=== PATIENT | female | born 1990 ===

== ENCOUNTER 2017-03-01 08:54 | Emergency (ER) | payer OTHER ==
[2017-03-01 09:06] VITALS: BP 112/64; PULSE 71; RESP 18; TEMP 96.7; O2SAT 98; BMI 23.3
--- NOTE | 2017-03-01 10:03 | ED PDOC ---
HPI: Abdomen Time Seen by Provider: 03/01/17 09:14 Chief Complaint (Nursing): Abdominal Pain Chief Complaint (Provider): Abdominal Pain History Per: Patient History/Exam Limitations: no limitations Onset/Duration Of Symptoms: Days (x2 weeks) Current Symptoms Are (Timing): Still Present Additional Complaint(s): 27 y/o female presents to the emergency department with a constant lower left abdominal pain but intermittent within the past 2 weeks without radiation of pain. Associated with burning sensation while urinating. Reports taking Tylenol with minimal relief of pain. Denies blood in urine, vaginal bleeding or discharge. Past Medical History Reviewed: Historical Data, Nursing Documentation, Vital Signs Vital Signs: Last Vital Signs Temp 96.7 F L 03/01/17 09:05 Pulse 71 03/01/17 09:05 Resp 18 03/01/17 09:05 BP 112/64 03/01/17 09:05 Pulse Ox 98 03/01/17 12:53 - Medical History PMH: No Chronic Diseases - Surgical History Surgical History: No Surg Hx - Family History Family History: States: Unknown Family Hx - Social History Current smoker - smoking cessation education provided: No Alcohol: None Drugs: Denies - Home Medications Home Medications: Ambulatory Orders Medication Instructions Recorded Naproxen [Naprosyn] 500 mg PO BID PRN #15 tablet 03/01/17 - Allergies Allergies/Adverse Reactions: Allergies Allergy/AdvReac Type Severity Reaction Status Date / Time No Known Allergies Allergy Verified 03/01/17 09:12 Review of Systems ROS Statement: Except As Marked, All Systems Reviewed And Found Negative Gastrointestinal: Positive for: Abdominal Pain Genitourinary Female: Positive for: Dysuria. Negative for: Hematuria, Vaginal Discharge, Vaginal Bleeding Physical Exam - Reviewed Nursing Documentation Reviewed: Yes Vital Signs Reviewed: Yes - Physical Exam Appears: Positive for: Non-toxic, No Acute Distress Head Exam: Positive for: ATRAUMATIC, NORMAL INSPECTION, NORMOCEPHALIC Skin: Positive for: Normal Color, Warm, Dry Gastrointestinal/Abdominal: Positive for: Soft, Tenderness (Left pelvic tenderness). Negative for: Normal Exam, Mass, Guarding, Rebound Neurologic/Psych: Positive for: Alert, Oriented (x3) - ECG O2 Sat by Pulse Oximetry: 98 (RA) Pulse Ox Interpretation: Normal Medical Decision Making Medical Decision Making: Time: 09:34 Initial Impression: Abdominal pain Initial Plan: --Urine DIP & Preg --Motrin 600 mg PO --Urinalysis --Pelvis/Transvag US --Reevaluation Accession No. : [id number] Patient Name / ID : QUE [place]ar / [id number] Exam Date : 02/19/2017 10:16:47 ( Approved ) Study Comment : Sex / Age : M / 65Y Creator : Fili Ybarra MD Dictator : Fili Ybarra MD Supervisor Electronics Processing : Beverage Manager : Fili Ybarra MD Approver2 : Report Date : 02/19/2017 12:18:52 My Comment : HISTORY: Chest wall pain COMPARISON: No prior. TECHNIQUE: Chest PA and lateral FINDINGS: Multiple sternotomy wires identified as well as intracardiac device. LUNGS: No acute infiltrate or pleural effusion is identified. There is crowding of the bronchovascular markings bilaterally which is likely a function of somewhat less than ideal inspiratory volume. PLEURA: No significant pleural effusion identified. No pneumothorax apparent. CARDIOVASCULAR: Normal. OSSEOUS STRUCTURES: No significant abnormalities. VISUALIZED UPPER ABDOMEN: Normal. OTHER FINDINGS: None. IMPRESSION: No acute infiltrate or pleural effusion bilaterally. No pneumothorax identified. Scribe Attestation: Documented by Edna Garay, acting as a scribe for Shayna Gary MD. Provider Scribe Attestation: All medical record entries made by the Scribe were at my direction and personally dictated by me. I have reviewed the chart and agree that the record accurately reflects my personal performance of the history, physical exam, medical decision making, and the department course for this patient. I have also personally directed, reviewed, and agree with the discharge instructions and disposition. Disposition - Clinical Impression Clinical Impression: Pelvic pain in female - Disposition Referrals: [facility] [Outside] Disposition Time: 12:30 Condition: STABLE Prescriptions: Naproxen [Naprosyn] 500 mg PO BID PRN #15 tablet PRN Reason: Pain, Moderate (4-7) Instructions: Pelvic Pain in Women (ED) Forms: [employer] (Somali) Print Language: SINGAPORE[place]
[2017-03-01 10:18] LABS: RBC URINE 4 /hpf (0-3); URINE BILIRUBIN NEGATIVE (NEGATIVE); URINE BLOOD SMALL (NEGATIVE); URINE COLOR YELLOW (YELLOW); URINE GLUCOSE (UA) NEG (Normal); URINE KETONE NEGATIVE (NEGATIVE); URINE LEUKOCYTE ESTERASE NEG Leu/uL (Negative); URINE PROTEIN NEGATIVE (NEGATIVE); URINE UROBILINOGEN 0.2-1.0 mg/dL (0.2-1.0); WBC URINE 1 /hpf (0-5)
--- NOTE | 2017-03-01 13:08 | US ---
HISTORY: L pelvic pain COMPARISON: None available. TECHNIQUE: Transabdominal FINDINGS: UTERUS: Measures 9.5 x 6.7 x 3.4 cm. Normal in size and appearance. No fibroid or other mass lesion seen. ENDOMETRIUM: Measures suboptimally evaluated due to the presence of an intrauterine device. No greater than 4 mm. Intrauterine device appropriately situated within the endometrial echo complex. . CERVIX: No cervical abnormality identified. RIGHT OVARY: Measures 2.0 x 3.7 x 4.5 cm. No solid mass. Normal flow. LEFT OVARY: Measures 2.7 x 2.9 x 3.8 cm. No solid mass. Normal flow. FREE FLUID: No significant free fluid noted. OTHER FINDINGS: None. IMPRESSION: Intrauterine device appropriately situated within the endometrial echo complex. The remainder of the examination is unremarkable.
== END 2017-03-01 13:18 | disposition home or self-care (01) ==
LOC: H.ER 08:54
DX: R10.2 Pelvic and perineal pain (principal)